=== PATIENT | female | born 1990 | race Caucasian/White ===

== ENCOUNTER 2017-01-27 21:05 | Observation (INO) | payer BC ==
[~2017-01-27] VITALS: Ht 160 cm; Wt 103.0 kg
[2017-01-31 12:05] VITALS: Ht 160 cm; Wt 103.0 kg
== END 2017-01-28 07:00 | disposition swing bed (61) ==
LOC: SPU 21:05
PROVIDERS: ADMIT Specialist; ATTEND Specialist
DX: O26.893 Other specified pregnancy related conditions, third trimester (principal); R10.32 Left lower quadrant pain; M54.5 Low back pain; R06.02 Shortness of breath; Z3A.35 35 weeks gestation of pregnancy
CPT/HCPCS: 81002; G0378 ×2

== ENCOUNTER 2017-01-27 22:56 | Emergency (ER) | payer BC ==
[~2017-01-27] VITALS: Ht 160 cm; Wt 103.0 kg
[2017-01-27 22:59] VITALS: BP 109/57; PULSE 91; RESP 18; TEMP 98.3; O2SAT 97
[2017-01-27 23:12] VITALS: BP 114/62; PULSE 88; RESP 18; TEMP 98.3; O2SAT 98
== END 2017-01-27 23:12 | disposition home or self-care (01) ==
LOC: SED 22:56
DX: O9A.211 Injury, poisoning and certain other consequences of external causes complicating pregnancy, first trimester (principal); S33.8XXA Sprain of other parts of lumbar spine and pelvis, initial encounter; Z88.2 Allergy status to sulfonamides; Z98.84 Bariatric surgery status; X58.XXXA Exposure to other specified factors, initial encounter; Y93.89 Activity, other specified; Y92.89 Other specified places as the place of occurrence of the external cause; Y99.8 Other external cause status
CPT/HCPCS: 99281

== ENCOUNTER 2017-01-29 14:30 | Inpatient (IN) | payer BC ==
[~2017-01-29] VITALS: Ht 160 cm; Wt 103.0 kg
[2017-01-29] MEDS ORDERED: LR 1,000 ML IV ONE ×2 (15:03→18:57)
[2017-01-29] MEDS ORDERED: CEFAZOLIN 2 GM IVPB PREMIX 50 ML IV ONE (15:15)
[2017-01-29] MEDS ORDERED: AMPICILLIN SODIUM 2 GM in NS 100 ML IV ONE (15:15)
[2017-01-29 15:30] LABS: BLOOD, URINE NEGATIVE (NEGATIVE); CLARITY/URINE SL CLOUDY (CLEAR); COLOR,URINE YELLOW (YELLOW); GLUCOSE,URINE NEGATIVE (NEGATIVE); KETONES,URINE TRACE (NEGATIVE); LEUKOCYTE ESTERASE ,URINE 1+ (NEGATIVE); NITRITE, URINE NEGATIVE (NEGATIVE); PH,URINE 5.5 (5.0-8.0); PROTEIN URINE 1+ (NEGATIVE)
[2017-01-29 15:34] LABS: BASOPHILS # (AUTO) 0.1 K/uL (0.0-0.2); HEMOGLOBIN 13.1 g/dL (12.0-16.0); LYMPHOCYTES # (AUTO) 1.2 K/uL (1.0-5.5); MEAN CORPUSCULAR HEMOGLOBIN 30 pg (27-31); MEAN CORPUSCULAR HGB CONC 33 % (32-36); MEAN CORPUSCULAR VOLUME 91 fL (79.0-98.0)
[2017-01-29 15:40] LABS: BILIRUBIN,URINE NEGATIVE (NEGATIVE)
[2017-01-29 15:52] LABS: BASOPHILS % (AUTO) 0.5 % (0.0-2.0); EOSINOPHILS % (AUTO) 0.2 % (0.0-4.0); HEMATOCRIT 39.3 % (36-48); LYMPHOCYTES % (AUTO) 7.3 % (20.5-51.5); MONOCYTES # (AUTO) 1.2 K/uL (0.0-1.0); NEUTROPHILS # (AUTO) 14.3 K/uL (1.8-7.7); PLATELET COUNT (AUTO) 164 K/uL (130-430); RED BLOOD CELL COUNT(AUTO) 4.32 MIL/uL (4.2-6.2); RED CELL DISTRIBUTION WIDTH 12.2 % (9.0-15.0); WHITE BLOOD COUNT (AUTO) 16.8 K/uL (4.8-10.8)
[2017-01-29 15:55] LABS: BACTERIA,URINE MODERATE /HPF (None Seen); RBC,URINE NONE SEEN /HPF (0-3); WBC,URINE 80-100 /HPF (0-3)
[2017-01-29 15:56] LABS: MUCUS,URINE 2+ /LPF (None Seen)
[2017-01-29 16:33] VITALS: BP_SYST 97
[2017-01-29] MEDS ORDERED: OXYTOCIN 10 UNIT/ML VIAL IV ONE (18:01)
[2017-01-29] MEDS ORDERED: fentaNYL CITRATE/PF 100 MCG/2 ML AMP IVP ONE (18:01)
[2017-01-29] MEDS ORDERED: METOCLOPRAMIDE HCL 10 MG/2 ML VIAL IVP ONE (18:01)
[2017-01-29] MEDS ORDERED: MORPHINE SULFATE 10MG/10ML PF AMP EP ONE (18:01)
[2017-01-29] MEDS ORDERED: LR 1,000 ML IV.SOLN IV ONE (18:01)
[2017-01-29] MEDS ORDERED: DEXAMETHASONE SOD PHOSPHATE 4 MG/ML VIAL IVP ONE (18:01)
[2017-01-29] MEDS ORDERED: fentaNYL CITRATE/PF 100 MCG/2 ML AMP IVP PRN (19:00)
[2017-01-29] MEDS ORDERED: ONDANSETRON HCL 4 MG/2 ML VIAL IVP PRN ×2 (19:00)
[2017-01-29] MEDS ORDERED: ePHEDrine sulfate 50 MG/ML VIAL IVP PRN (19:00)
[2017-01-29] MEDS ORDERED: KETOROLAC TROMETHAMINE 30 MG VIAL IM PRN (19:00)
[2017-01-29] MEDS ORDERED: DIPHENHYDRAMINE INJ 50 MG/ML VIAL IVP PRN (19:00)
[2017-01-29] MEDS ORDERED: NALBUPHINE HCL 10 MG/ML AMP IVP PRN (19:00)
[2017-01-29] MEDS ORDERED: NALOXONE HCL 0.4 MG/ML AMP (NARCAN) IVP PRN (19:00)
[2017-01-29 19:10] VITALS: BP_SYST 108
[2017-01-29] MEDS ORDERED: LR 1,000 ML IV SCH (19:11)
[2017-01-29] MEDS ORDERED: OXYTOCIN/NORMAL SALINE 1,000 ML IV ONE (19:11)
[2017-01-29] MEDS ORDERED: OXYCODONE/ACETAMINOPHEN 5-325 TABLET PO PRN (19:15)
[2017-01-29] MEDS ORDERED: LANOLIN 7 GM OINT. TP PRN (19:15)
[2017-01-29] MEDS ORDERED: MEASLES,MUMPS&RUBELLA VACC/PF 12500 UNIT/0.5 ML VIAL SUBQ PRN (19:15)
[2017-01-29] MEDS ORDERED: SENNOSIDES/DOCUSATE SODIUM 1 TAB TABLET(SENOKOT-S) PO PRN (19:15)
[2017-01-29] MEDS ORDERED: BISACODYL 10 MG/SUPPOSITORY RC PRN (19:15)
[2017-01-29] MEDS ORDERED: HYDROcodone/ACETAMIN 5-325 MG TAB (NORCO/ VICODIN) PO PRN (19:15)
[2017-01-29] MEDS ORDERED: RHO(D) IMMUNE GLOBULIN/MALTOSE 1500 UNITS/1.3 ML (WINHRO) IM PRN (19:15)
[2017-01-29] MEDS ORDERED: ANUSOL 1 EA SUPP.RECT (PREPARATION H) RC PRN (19:15)
[2017-01-29] MEDS ORDERED: TEMAZEPAM 15 MG CAPSULE PO PRN (21:00)
[2017-01-30 06:56] LABS: HEMATOCRIT 33.6 % (36-48); HEMOGLOBIN 11.2 g/dL (12.0-16.0); MEAN CORPUSCULAR HEMOGLOBIN 30 pg (27-31); MEAN CORPUSCULAR HGB CONC 33 % (32-36); MEAN CORPUSCULAR VOLUME 91 fL (79.0-98.0); PLATELET COUNT (AUTO) 151 K/uL (130-430); RED BLOOD CELL COUNT(AUTO) 3.71 MIL/uL (4.2-6.2); RED CELL DISTRIBUTION WIDTH 12.1 % (9.0-15.0); WHITE BLOOD COUNT (AUTO) 16.3 K/uL (4.8-10.8)
[2017-01-30 07:55] LABS: ATYPICAL LYMPHOCYTES % 0 % (0-0); BAND % (MANUAL) 11 % (0-6); BASOPHILS % (MANUAL) 0 % (0-2); EOSINOPHILS % (MANUAL) 0 % (0-7); LYMPHOCYTES % (MANUAL) 8 % (20-46); MONOCYTES % (MANUAL) 4 % (0-11)
[2017-01-30] MEDS ORDERED: DIPH-TET-PERTUS Vaccine 0.5 ML VIAL/Tdap (ADACEL) I.M. PRN (08:15)
[2017-01-30] MEDS: CEFAZOLIN 1 GM IVPB PREMIX 50 ML IV SCH ×2 (12:00)
[2017-01-30] MEDS: OXYCODONE/ACETAMINOPHEN 5-325 TABLET PO PRN ×2 (12:27→18:37)
[2017-01-30] MEDS: KETOROLAC TROMETHAMINE 30 MG VIAL IVP SCH ×2 (12:28→18:36)
[2017-01-31] MEDS: IBUPROFEN 600 MG TABLET PO SCH ×4 (00:14→17:53)
[2017-01-31] MEDS ORDERED: IBUPROFEN 600 MG TABLET ONE (00:18)
[2017-01-31] MEDS: OXYCODONE/ACETAMINOPHEN 5-325 TABLET PO PRN ×5 (02:16→21:36)
[2017-01-31] MEDS: DOCUSATE SODIUM 100 MG CAPSULE PO PRN (21:56)
[2017-01-31] MEDS: SIMETHICONE 80 MG TAB.CHEW PO PRN (21:56)
[2017-02-01] MEDS: IBUPROFEN 600 MG TABLET PO SCH ×3 (00:06→12:00)
[2017-02-01] MEDS: SIMETHICONE 80 MG TAB.CHEW PO PRN ×3 (03:49→12:40)
[2017-02-01] MEDS: OXYCODONE/ACETAMINOPHEN 5-325 TABLET PO PRN ×3 (03:50→10:39)
[2017-02-01] MEDS: DOCUSATE SODIUM 100 MG CAPSULE PO PRN (10:10)
== END 2017-02-01 14:00 | disposition home or self-care (01) | DRG 765 ==
LOC: SPU 14:30
PROVIDERS: ADMIT Specialist; ATTEND Specialist
PROC: 4A0HXCZ Measurement of Products of Conception, Cardiac Rate, External Approach (ICD-10-PCS; 2017-01-29)
PROC: 10D00Z1 Extraction of Products of Conception, Low, Open Approach (ICD-10-PCS; principal; 2017-01-29 17:00)
DX: O34.83 Maternal care for other abnormalities of pelvic organs, third trimester (principal); O60.14X0 Preterm labor third trimester with preterm delivery third trimester, not applicable or unspecified; Z68.41 Body mass index [BMI] 40.0-44.9, adult; E66.01 Morbid (severe) obesity due to excess calories; O99.214 Obesity complicating childbirth; S39.92XA Unspecified injury of lower back, initial encounter; W19.XXXA Unspecified fall, initial encounter; O90.89 Other complications of the puerperium, not elsewhere classified; S99.922A Unspecified injury of left foot, initial encounter; Y92.238 Other place in hospital as the place of occurrence of the external cause; Z88.2 Allergy status to sulfonamides; Z3A.36 36 weeks gestation of pregnancy; Z37.0 Single live birth; Y93.89 Activity, other specified; Y99.8 Other external cause status
CPT/HCPCS: 36415; 72100-TC; 72170-TC; 81000-TC; 85007; 85025; 85027; 86592; 86886; 86900; 86901; 90715; 94760; J0290; J0690; J1100; J1885; J2274; J2590; J2765; J3010; J7120

== ENCOUNTER 2018-02-22 23:57 | Observation (INO) | payer BC ==
[~2018-02-22] VITALS: Ht 160 cm; Wt 107.5 kg
[2018-02-23 01:17] LABS: BASOPHILS % (AUTO) 0.5 % (0.0-2.0); EOSINOPHILS # (AUTO) 0.1 K/uL (0.0-0.4); EOSINOPHILS % (AUTO) 0.7 % (0.0-4.0); HEMATOCRIT 35.1 % (36-48); HEMOGLOBIN 12.1 g/dL (12.0-16.0); LYMPHOCYTES # (AUTO) 0.7 K/uL (1.0-5.5); LYMPHOCYTES % (AUTO) 8.7 % (20.5-51.5); MEAN CORPUSCULAR HEMOGLOBIN 32 pg (27-31); MEAN CORPUSCULAR HGB CONC 35 % (32-36); MEAN CORPUSCULAR VOLUME 93 fL (79.0-98.0); MONOCYTES # (AUTO) 0.3 K/uL (0.0-1.0); MONOCYTES % (AUTO) 3.9 % (1.7-9.3); NEUTROPHILS # (AUTO) 7.4 K/uL (1.8-7.7); NEUTROPHILS % (AUTO) 86.2 % (40.0-70.0); PLATELET COUNT (AUTO) 140 K/uL (130-430); RED BLOOD CELL COUNT(AUTO) 3.78 MIL/uL (4.2-6.2); RED CELL DISTRIBUTION WIDTH 12.7 % (9.0-15.0); WHITE BLOOD COUNT (AUTO) 8.5 K/uL (4.8-10.8)
[2018-02-23] MEDS ORDERED: MEPERIDINE HCL/PF 100 MG/ML AMP IM PRN (01:45)
[2018-02-23] MEDS ORDERED: PROMETHAZINE HCL 25 MG/ML AMP IM PRN (01:45)
[2018-02-23] MEDS ORDERED: D5LR 1,000 ML IV ONE (01:45)
[2018-02-23] MEDS: PROMETHAZINE HCL 25 MG/ML AMP IM PRN ×2 (05:15→08:22)
[2018-02-23] MEDS: MEPERIDINE HCL/PF 100 MG/ML AMP IM PRN ×2 (05:15→08:22)
[2018-02-23 05:28] LABS: BILIRUBIN,URINE NEGATIVE (NEGATIVE); BLOOD, URINE NEGATIVE (NEGATIVE); CLARITY/URINE CLEAR (CLEAR); COLOR,URINE YELLOW (YELLOW); GLUCOSE,URINE NEGATIVE (NEGATIVE); KETONES,URINE 3+ (NEGATIVE); LEUKOCYTE ESTERASE ,URINE NEGATIVE (NEGATIVE); NITRITE, URINE NEGATIVE (NEGATIVE); PH,URINE 5.5 (5.0-8.0); PROTEIN URINE TRACE (NEGATIVE)
[2018-02-23 05:42] LABS: BACTERIA,URINE FEW /HPF (None Seen); FINE GRANULAR CASTS,URINE 0-10 /LPF (None Seen); MUCUS,URINE 1+ /LPF (None Seen); RBC,URINE 0-3 /HPF (0-3); WBC,URINE 0-3 /HPF (0-3)
== END 2018-02-23 11:25 | disposition home or self-care (01) ==
LOC: SPU 23:57
PROVIDERS: ADMIT Specialist; ATTEND Specialist
DX: O26.893 Other specified pregnancy related conditions, third trimester (principal); R10.9 Unspecified abdominal pain; Z3A.30 30 weeks gestation of pregnancy
CPT/HCPCS: 36415; 76770; 76805; 81000; 85025; 96360; 96361; 96372; G0378 ×2; J2175; J2550

== ENCOUNTER 2018-04-29 10:20 | Inpatient (IN) | payer BC ==
[~2018-04-29] VITALS: Ht 160 cm; Wt 106.6 kg
[2018-04-29] MEDS ORDERED: LR 1,000 ML IV SCH ×3 (10:38→13:33)
[2018-04-29] MEDS ORDERED: CEFAZOLIN 2 GM IVPB PREMIX 50 ML IV ONE (10:45)
[2018-04-29] MEDS ORDERED: NALOXONE HCL 1 MG in NACL 0.9% 1,000 ML IV PRN ×4 (10:50)
[2018-04-29] MEDS ORDERED: HYDROmorphone 2 MG/ML VIAL IVP PRN ×2 (11:00)
[2018-04-29] MEDS ORDERED: MEPERIDINE HCL/PF 25 MG/ML DISP.SYRIN IVP PRN ×2 (11:00)
[2018-04-29] MEDS ORDERED: NALOXONE HCL 0.4 MG/ML AMP (NARCAN) IVP PRN ×3 (11:00)
[2018-04-29] MEDS ORDERED: KETOROLAC TROMETHAMINE 60 MG/2 ML VIAL IM PRN (11:00)
[2018-04-29] MEDS ORDERED: ONDANSETRON HCL 4 MG/2 ML VIAL IVP PRN (11:00)
[2018-04-29] MEDS ORDERED: HYDROmorphone 1 MG INJ. 1 MG/ML AMPUL IVP PRN (11:00)
[2018-04-29] MEDS ORDERED: DIPHENHYDRAMINE HCL 50 MG CAPSULE PO PRN (11:00)
[2018-04-29 11:20] VITALS: BP_SYST 103
[2018-04-29 11:29] LABS: BASOPHILS % (AUTO) 0.4 % (0.0-2.0); EOSINOPHILS % (AUTO) 0.3 % (0.0-4.0); HEMATOCRIT 39.1 % (36-48); HEMOGLOBIN 13.2 g/dL (12.0-16.0); LYMPHOCYTES # (AUTO) 1.4 K/uL (1.0-5.5); LYMPHOCYTES % (AUTO) 12.5 % (20.5-51.5); MEAN CORPUSCULAR HEMOGLOBIN 30 pg (27-31); MEAN CORPUSCULAR HGB CONC 34 % (32-36); MEAN CORPUSCULAR VOLUME 90 fL (79.0-98.0); MONOCYTES # (AUTO) 0.5 K/uL (0.0-1.0); MONOCYTES % (AUTO) 4.6 % (1.7-9.3); NEUTROPHILS # (AUTO) 9.5 K/uL (1.8-7.7); NEUTROPHILS % (AUTO) 82.2 % (40.0-70.0); PLATELET COUNT (AUTO) 179 K/uL (130-430); RED BLOOD CELL COUNT(AUTO) 4.35 MIL/uL (4.2-6.2); RED CELL DISTRIBUTION WIDTH 12.7 % (9.0-15.0); WHITE BLOOD COUNT (AUTO) 11.4 K/uL (4.8-10.8)
[2018-04-29] MEDS ORDERED: MORPHINE SULFATE 10MG/10ML PF AMP EP ONE (12:00)
[2018-04-29] MEDS ORDERED: ePHEDrine sulfate 50 MG/ML VIAL IVP ONE (12:00)
[2018-04-29] MEDS ORDERED: LR 1,000 ML IV.SOLN IV ONE (12:00)
[2018-04-29] MEDS ORDERED: ONDANSETRON HCL 4 MG/2 ML VIAL IVP ONE (12:00)
[2018-04-29] MEDS ORDERED: BUPIVACAINE /PF 0.75% 10 ML VIAL INJ ONE (12:00)
[2018-04-29] MEDS ORDERED: NS 1000 ML IV.SOLN IV ONE (12:00)
[2018-04-29] MEDS ORDERED: OXYTOCIN 10 UNIT/ML VIAL IV ONE (12:00)
[2018-04-29] MEDS: KETOROLAC TROMETHAMINE 30 MG VIAL IVP SCH ×2 (12:14→20:57)
[2018-04-29 12:23] LABS: BILIRUBIN,URINE NEGATIVE (NEGATIVE); BLOOD, URINE NEGATIVE (NEGATIVE); CLARITY/URINE CLEAR (CLEAR); COLOR,URINE YELLOW (YELLOW); GLUCOSE,URINE NEGATIVE (NEGATIVE); KETONES,URINE 1+ (NEGATIVE); LEUKOCYTE ESTERASE ,URINE NEGATIVE (NEGATIVE); NITRITE, URINE NEGATIVE (NEGATIVE); PH,URINE 5.5 (5.0-8.0); PROTEIN URINE NEGATIVE (NEGATIVE); UROBILINOGEN,URINE 0.2 (0.2-1.0)
[2018-04-29] MEDS ORDERED: OXYTOCIN/0.9 % SODIUM CHLORIDE 1,000 ML IV ONE ×2 (13:33→13:47)
[2018-04-29 13:35] VITALS: BP_SYST 93
[2018-04-29] MEDS ORDERED: SENNOSIDES/DOCUSATE SODIUM 1 TAB TABLET(SENOKOT-S) PO PRN (13:45)
[2018-04-29] MEDS ORDERED: ANUSOL 1 EA SUPP.RECT (PREPARATION H) RC PRN (13:45)
[2018-04-29] MEDS ORDERED: HYDROcodone/ACETAMIN 5-325 MG TAB (NORCO/ VICODIN) PO PRN (13:45)
[2018-04-29] MEDS ORDERED: MEASLES,MUMPS&RUBELLA VACC/PF 12500 UNIT/0.5 ML VIAL SUBQ PRN (13:45)
[2018-04-29] MEDS ORDERED: BISACODYL 10 MG/SUPPOSITORY RC PRN (13:45)
[2018-04-29] MEDS ORDERED: OXYCODONE/ACETAMINOPHEN 5-325 TABLET PO PRN (13:45)
[2018-04-29] MEDS ORDERED: LANOLIN 7 GM OINT. TP PRN (13:45)
[2018-04-29] MEDS ORDERED: RHO(D) IMMUNE GLOBULIN/MALTOSE 1500 UNITS/1.3 ML (WINHRO) IM PRN (13:45)
[2018-04-29] MEDS ORDERED: DIPHENHYDRAMINE INJ 50 MG/ML VIAL IVP PRN (14:00)
[2018-04-29] MEDS ORDERED: METOCLOPRAMIDE HCL 10 MG/2 ML VIAL ONE (15:41)
[2018-04-29] MEDS: METOCLOPRAMIDE HCL 10 MG/2 ML VIAL IVP SCH ×2 (15:56→20:57)
[2018-04-29] MEDS: CEFAZOLIN 1 GM IVPB PREMIX 50 ML IV SCH ×2 (18:29→23:41)
[2018-04-29] MEDS ORDERED: TEMAZEPAM 15 MG CAPSULE PO PRN (21:00)
[2018-04-30] MEDS: KETOROLAC TROMETHAMINE 30 MG VIAL IVP SCH ×2 (05:58)
[2018-04-30] MEDS: CEFAZOLIN 1 GM IVPB PREMIX 50 ML IV SCH (05:59)
[2018-04-30] MEDS ORDERED: IBUPROFEN 600 MG TABLET PO SCH (06:00)
[2018-04-30] MEDS: METOCLOPRAMIDE HCL 10 MG/2 ML VIAL IVP SCH (06:02)
[2018-04-30 06:51] LABS: BASOPHILS % (AUTO) 0.4 % (0.0-2.0); EOSINOPHILS % (AUTO) 0.4 % (0.0-4.0); HEMATOCRIT 35.9 % (36-48); HEMOGLOBIN 12.4 g/dL (12.0-16.0); LYMPHOCYTES # (AUTO) 1.5 K/uL (1.0-5.5); LYMPHOCYTES % (AUTO) 13.7 % (20.5-51.5); MEAN CORPUSCULAR HEMOGLOBIN 32 pg (27-31); MEAN CORPUSCULAR HGB CONC 35 % (32-36); MEAN CORPUSCULAR VOLUME 92 fL (79.0-98.0); MONOCYTES # (AUTO) 0.6 K/uL (0.0-1.0); MONOCYTES % (AUTO) 5.3 % (1.7-9.3); NEUTROPHILS # (AUTO) 8.8 K/uL (1.8-7.7); NEUTROPHILS % (AUTO) 80.2 % (40.0-70.0); PLATELET COUNT (AUTO) 136 K/uL (130-430); RED CELL DISTRIBUTION WIDTH 12.7 % (9.0-15.0); WHITE BLOOD COUNT (AUTO) 10.9 K/uL (4.8-10.8)
[2018-04-30] MEDS: SIMETHICONE 80 MG TAB.CHEW PO PRN ×2 (12:14→20:15)
[2018-04-30] MEDS: DOCUSATE SODIUM 100 MG CAPSULE PO PRN ×2 (15:46→20:15)
[2018-04-30] MEDS: OXYCODONE/ACETAMINOPHEN 5-325 TABLET PO PRN ×2 (15:46→20:16)
[2018-05-01] MEDS: SIMETHICONE 80 MG TAB.CHEW PO PRN ×4 (00:20→21:46)
[2018-05-01] MEDS: KETOROLAC TROMETHAMINE 30 MG VIAL IM PRN ×4 (00:20→18:03)
[2018-05-01] MEDS: OXYCODONE/ACETAMINOPHEN 5-325 TABLET PO PRN ×3 (03:25→21:46)
--- NOTE | 2018-05-01 13:53 | NUR ---
Dietitian Recommendations * Recommend continuing regular diet per LP, RD Please refer to Nutrition Assessment for details.
[2018-05-02] MEDS: SIMETHICONE 80 MG TAB.CHEW PO PRN ×2 (00:20→06:34)
[2018-05-02] MEDS: KETOROLAC TROMETHAMINE 30 MG VIAL IM PRN ×3 (00:21→12:00)
[2018-05-02] MEDS: DOCUSATE SODIUM 100 MG CAPSULE PO PRN ×2 (06:34→12:00)
[2018-05-02] MEDS: OXYCODONE/ACETAMINOPHEN 5-325 TABLET PO PRN (18:21)
[2018-05-02] MEDS ORDERED: OXYCODONE/ACETAMINOPHEN 5-325 TABLET PO SCH (20:30)
== END 2018-05-02 20:15 | disposition home or self-care (01) | DRG 765 ==
LOC: SPU 10:20
PROVIDERS: ADMIT Specialist; ATTEND Specialist
PROC: 10D00Z1 Extraction of Products of Conception, Low, Open Approach (ICD-10-PCS; principal; 2018-04-29 12:00)
DX: O34.211 Maternal care for low transverse scar from previous cesarean delivery (principal); Z68.41 Body mass index [BMI] 40.0-44.9, adult; O99.214 Obesity complicating childbirth; O99.824 Streptococcus B carrier state complicating childbirth; O69.81X0 Labor and delivery complicated by cord around neck, without compression, not applicable or unspecified; O99.844 Bariatric surgery status complicating childbirth; O36.63X0 Maternal care for excessive fetal growth, third trimester, not applicable or unspecified; E66.01 Morbid (severe) obesity due to excess calories; Z3A.39 39 weeks gestation of pregnancy; Z37.0 Single live birth
CPT/HCPCS: 36415; 81003; 85025; 86592; 86886; 86900; 86901; 94760; J0690; J1885; J2274; J2310; J2405; J2590; J2765; J3490; J7030; J7120